=== PATIENT | female | born 1975 | race Caucasian/White ===

== ENCOUNTER 2016-11-08 14:21 | Emergency (ER) | payer MEDICAID, OTHER ==
[2016-11-08 16:25] VITALS: BP 147/86
[2016-11-08] MEDS ORDERED: Acetaminophen TAB* 325 MG PO ONE (16:40)
--- NOTE | 2016-11-08 16:44 | UC ---
Neck Pain HPI - HPI Summary HPI Summary: 41 yo female with neck pain x 1 week no trauma needed PT for neck pain years ago occassional radiation of pain to right shoulder slight QUIÑONEZ - History of Current Complaint Chief Complaint: UCGeneralIllness Stated Complaint: NECK PAIN Time Seen by Provider: 11/08/16 16:31 Hx Obtained From: Patient Hx Last Menstrual Period: tubal 1997; ablation 2013 Onset/Duration Of Injury/Symptoms: Weeks Mechanism Of Injury: No Known Trauma Timing: Constant Onset/Duration: Gradual Onset, Lasting Weeks Severity: Moderate Pain Intensity: 6 Pain Scale Used: 0-10 Numeric Character: Dull, Aching Aggravating Factors: Movement Alleviating Factors: Position Related History: Similar Episode/Dx As: - cervical strain - Allergies/Home Medications Allergies/Adverse Reactions: Allergies Allergy/AdvReac Type Severity Reaction Status Date / Time No Known Allergies Allergy Verified 11/08/16 16:17 Home Medications: Home Medications Meclizine TAB* [Antivert 12.5 TAB*] 1 tab PRN 11/08/16 [History] PMH/Surg Hx/FS Hx/Imm Hx Endocrine History Of: Denies: Diabetes, Thyroid Disease Cardiovascular History Of: Reports: Cardiac Disorders - PR 11/2013; cardiac cath , Hypertension, Myocardial Infarction Respiratory History Of: Reports: Asthma Denies: COPD GI/ History Of: Denies: Ulcer Neurological History Of: Reports: Migraine - Surgical History Surgical History: Yes Surgery Procedure, Year, and Place: uterine ablation; D&C x 2; tubal ligation - Family History Known Family History: Positive: Cardiac Disease, Hypertension - Social History Alcohol Use: None Substance Use Type: None Smoking Status (MU): Heavy Every Day Tobacco Smoker Type: Cigarettes Amount Used/How Often: 1/2 PACK DAY Length of Time of Smoking/Using Tobacco: 20+ years Have You Smoked in the Last Year: Yes Household Exposure Type: Cigarettes - Immunization History Most Recent Influenza Vaccination: none Most Recent Tetanus Shot: unknown Most Recent Pneumonia Vaccination: never Review Of Systems Constitutional: Positive: Negative Skin: Positive: Negative Eyes: Positive: Negative ENT: Positive: Negative Respiratory: Positive: Negative Cardiovascular: Positive: Negative Gastrointestinal: Positive: Negative Genitourinary: Positive: Negative Musculoskeletal: Positive: Arthralgia, Myalgia Neurological: Positive: Negative Psychological: Positive: Negative All Other Systems Reviewed And Are Negative: Yes Physical Exam Triage Information Reviewed: Yes Appearance: Well-Appearing, No Pain Distress, Well-Nourished Vital Signs: Initial Vital Signs Temp 98.1 F 11/08/16 16:18 Pulse 69 11/08/16 16:18 Resp 18 11/08/16 16:18 BP 147/86 11/08/16 16:18 Pulse Ox 100 11/08/16 16:18 Vital Signs Reviewed: Yes Eyes: Positive: Conjunctiva Clear ENT: Positive: Hearing grossly normal. Negative: Nasal congestion, Nasal drainage, Trismus, Muffled/hoarse voice Dental: Negative: Gross Decay/Caries @, Abscess @ Neck: Positive: Tenderness @ - c2 and c7, Other: - decreased ROM Respiratory: Positive: Lungs clear, Normal breath sounds, No respiratory distress, No accessory muscle use Cardiovascular: Positive: RRR, No Murmur Musculoskeletal: Positive: ROM Intact, No Edema Neurological Exam: Normal Neurological: Positive: Alert Psychological Exam: Normal Skin Exam: Normal Neck Pain Course/Dx - Differential Dx/Diagnosis Provider Diagnoses: cervical strain. mild DJD Discharge - Discharge Plan Condition: Stable Disposition: HOME Prescriptions: Cyclobenzaprine TAB* [Flexeril TAB*] 5 mg PO TID PRN #21 tab PRN Reason: Spasms HYDROcodone/ACETAMIN 5-325 MG* [[place] 5-325 TAB*] 1 tab PO Q4H PRN #10 tab MDD 2 PRN Reason: Pain Patient Education Materials: Cervical Strain (ED) Forms: *Work Release Referrals: Mira Beard MD [Primary Care Provider] - 1 Week Additional Instructions: PT consult soft cervical collar
--- NOTE | 2016-11-08 17:41 | RAD ---
INDICATION: Atraumatic neck pain. COMPARISON: There are no prior studies available for comparison. TECHNIQUE: 5 views of the cervical spine were obtained including lateral, oblique, AP and open-mouth odontoid views. FINDINGS: C1-C7 are visualized. The vertebra are in normal alignment. No prevertebral soft tissue swelling or fracture is seen. There is mild to moderate uncinate process spurring present at the C5-C6 and C6-C7 levels consistent with mild degenerative disc disease. Disc spaces appear relatively maintained. IMPRESSION: MILD DEGENERATIVE DISC DISEASE IN THE LOWER CERVICAL SPINE.
== END 2016-11-08 18:05 | disposition home or self-care (01) ==
LOC: UCEAST 14:21
DX: S16.1XXA Strain of muscle, fascia and tendon at neck level, initial encounter (principal); X58.XXXA Exposure to other specified factors, initial encounter; Y93.9 Activity, unspecified; Y92.9 Unspecified place or not applicable; M50.322 Other cervical disc degeneration at C5-C6 level; M50.323 Other cervical disc degeneration at C6-C7 level; R51 Headache; F17.210 Nicotine dependence, cigarettes, uncomplicated
CPT/HCPCS: 72050; 99213; A9270-GY; G0463

== ENCOUNTER 2017-09-26 18:09 | Emergency (ER) | payer OTHER ==
--- NOTE | 2017-09-26 19:59 | RAD ---
INDICATION: Left hip pain COMPARISON: None TECHNIQUE: An AP view of the pelvis and AP views of the hip in neutral and abducted position were obtained FINDINGS: Bones: There are no acute bony findings. Joint spaces: The hips articulate normally. The joint spaces are preserved. SI joints/symphysis: The SI joints and symphysis are intact. Other: None IMPRESSION: NEGATIVE EXAMINATION
[2017-09-26] MEDS ORDERED: Acetaminophen TAB* 325 MG PO ONE (21:13)
--- NOTE | 2017-09-26 21:13 | ED ---
Lower Extremity - HPI Summary HPI Summary: 42F presents with left hip pain for couple days. has history of hip dysplasia. she states that pain alternates hips. She denies any new injury. She denies any back pain. She has not taken anything for pain. She denies any loss of bowel or bladder or saddle anaesthesia. She denies any pin and needles sensation down legs. She denies any pain down the legs. She denies any fevers. - History of Current Complaint Chief Complaint: EDExtremityLower Stated Complaint: LT HIP PAIN Time Seen by Provider: 09/26/17 20:13 Hx Last Menstrual Period: tubal 1997; ablation 2013 Pain Intensity: 8 - Allergies/Home Medications Allergies/Adverse Reactions: Allergies Allergy/AdvReac Type Severity Reaction Status Date / Time No Known Allergies Allergy Verified 09/26/17 18:31 PMH/Surg Hx/FS Hx/Imm Hx Endocrine/Hematology History: Reports: Hx Blood Disorders - excessive bleeding with monthly cycle, Hx Anemia Denies: Hx Diabetes, Hx Thyroid Disease Cardiovascular History: Reports: Hx Angina, Hx Hypercholesterolemia, Hx Hypertension, Hx Myocardial Infarction, Other Cardiovascular Problems/Disorders - "abnormal bleeding" Respiratory History: Reports: Hx Asthma Denies: Hx Chronic Obstructive Pulmonary Disease (COPD) GI History: Denies: Hx Ulcer Sensory History: Reports: Hx Contacts or Glasses Opthamlomology History: Reports: Hx Contacts or Glasses Neurological History: Reports: Hx Headaches, Hx Migraine - Surgical History Surgery Procedure, Year, and Place: uterine ablation; D&C x 2; tubal ligation Infectious Disease History: Unable to Obtain/Confirm Infectious Disease History: Reports: Hx Hepatitis - HEP B Denies: Hx Clostridium Difficile, Hx Human Immunodeficiency Virus (HIV), Hx of Known/Suspected MRSA, Hx Shingles, Hx Tuberculosis, Hx Known/Suspected VRE, Hx Known/Suspected VRSA, History Other Infectious Disease, Traveled Outside the [place] in Last 30 Days - Family History Known Family History: Positive: Cardiac Disease, Hypertension - Social History Alcohol Use: None Substance Use Type: Reports: None Hx Tobacco Use: Yes Smoking Status (MU): Heavy Every Day Tobacco Smoker Type: Cigarettes Amount Used/How Often: 1/2 PACK DAY Length of Time of Smoking/Using Tobacco: 20+ years Have You Smoked in the Last Year: Yes Review of Systems Negative: Fever Negative: Chest Pain Negative: Shortness Of Breath Positive: Myalgia - left hip pain All Other Systems Reviewed And Are Negative: Yes Physical Exam Triage Information Reviewed: Yes Vital Signs On Initial Exam: Initial Vitals Temp Pulse Resp BP Pulse Ox 98.4 F 102 20 147/100 97 09/26/17 18:29 09/26/17 18:29 12 18:29 09/26/17 18:29 09/26/17 18:29 Vital Signs Reviewed: Yes Appearance: Positive: Well-Appearing Skin: Positive: Warm, Dry Head/Face: Positive: Normal Head/Face Inspection Eyes: Positive: Normal, Conjunctiva Clear Respiratory/Lung Sounds: Positive: Clear to Auscultation, Breath Sounds Present Cardiovascular: Positive: Normal, RRR Abdomen Description: Positive: Nontender, Soft Bowel Sounds: Positive: Present Musculoskeletal: Positive: Strength/ROM Intact - left hip, Other - pos godwin, good pulses, sensation grossly intact Neurological: Positive: Reflexes Intact - patella Psychiatric: Positive: Normal - Meno Coma Scale Coma Scale Total: 15 Diagnostics - Vital Signs Vital Signs Temp Pulse Resp BP Pulse Ox 09/26/17 18:29 98.4 F 102 20 147/100 97 - Laboratory Lab Statement: Any lab studies that have been ordered have been reviewed, and results considered in the medical decision making process. - Radiology hip Xray Interpretation: No Acute Changes Radiology Interpretation Completed By: Radiologist Lower Extremity Course/Dx - Course Course Of Treatment: 42F presents with left hip pain for couple days. has history of hip dysplasia. she states that pain alternates hips. She denies any new injury. She denies any back pain. She has not taken anything for pain. She denies any loss of bowel or bladder or saddle anaesthesia. She denies any pin and needles sensation down legs. She denies any pain down the legs. She denies any fevers. on exam positive GODWIN test. neg xray. will treat with tyenlol and gave PT referral. patient understand and agrees with plan. - Diagnoses Differential Diagnosis/HQI/PQRI: Positive: Fracture (Closed), Sprain, Strain Provider Diagnoses: Left hip pain Discharge - Discharge Plan Condition: Good Disposition: HOME Prescriptions: Acetaminophen TAB* [Tylenol TAB*] 650 mg PO Q6H PRN #30 tab PRN Reason: Pain Patient Education Materials: Hip Pain (ED) Referrals: Mira Beard MD [Primary Care Provider] - [facility] – [place], [place] Physical therapy,PT [Medical Doctor] - Additional Instructions: Take Tylenol every 6 hours as needed for pain Apply ice/ heat, stretch Follow up with physical therapy Return to ED if develop any new or worsening symptoms
[2017-09-26 21:22] VITALS: BP 135/86
== END 2017-09-26 21:23 | disposition home or self-care (01) ==
LOC: ED 18:09
DX: M25.552 Pain in left hip (principal); I25.2 Old myocardial infarction; I10 Essential (primary) hypertension; I20.9 Angina pectoris, unspecified; E78.00 Pure hypercholesterolemia, unspecified; J45.909 Unspecified asthma, uncomplicated; G43.909 Migraine, unspecified, not intractable, without status migrainosus; Z86.19 Personal history of other infectious and parasitic diseases; F17.210 Nicotine dependence, cigarettes, uncomplicated
CPT/HCPCS: 99282; A9270-GY